=== PATIENT | female | born 1980 | race Two or more races ===

== ENCOUNTER 2017-05-10 18:57 | Emergency (ER) | payer MEDICAID ==
[~2017-05-10] VITALS: Ht 165.1 cm; Wt 90.3 kg
[~2017-05-10 18:57] MED LIST: ATIVAN0.5 MG ORAL; BENADRYL A12.5 MG/5 ORAL; CYCLOBENZAPRINE10 MG ORAL; IBUPROFEN400 MG ORAL; IBUPROFEN600 MG ORAL; KENALOG 0.5% CR15 GM APPLIC; NKM; NORCO 5-325 TA1 EACH ORAL; PEPCID40 MG PO; PEPTO-BISM262 MG/15 PO; TRAZODONE HCL50 MG ORAL
[2017-05-10] MEDS ORDERED: IBUPROFEN600 MG ORAL (19:28)
[2017-05-10] MEDS ORDERED: PROMETHAZINE-D118 ML ORAL (19:28)
[2017-05-10] MEDS ORDERED: PROAIR HFA8.5 GM INH (19:28)
[2017-05-10 19:29] VITALS: BP 130/77
--- NOTE | 2017-05-10 20:48 | Emergency Room Report ---
History of Present Illness General Chief Complaint: Upper Respiratory Illness Source: Patient Present Illness HPI The patient is a 37-year-old female presenting for body pain, cough, and fever since yesterday. She denies any known sick contacts or recent travel. She did not have a flu shot this year. Pain described as an 8/10 dull ache. She has used Motrin which helps. She denies other symptoms including N, V, SOB, hemoptysis, DOBBINS, fatigue Allergies: Coded Allergies: No Known Allergies (Unverified , 07/01/15) Patient History Past Medical History: see triage record Pertinent Family History: none Last Menstrual Period: 04/26/17 Now: No : 2 Para: 2 Reviewed Nursing Documentation: PMH: Agreed, PSxH: Agreed Nursing Documentation-PMH Past Medical History: No History, Except For History Of Psychiatric Problem: Yes - anxiety Review of Systems All Other Systems: negative except mentioned in HPI Physical Exam Vital Signs Date Time Temp Pulse Resp B/P (MAP) Pulse Ox O2 Delivery O2 Flow Rate FiO2 05/10/17 19:08 99.7 94 14 132/77 99 Room Air Sp02 EP Interpretation: reviewed, normal General Appearance: no apparent distress, alert, GCS 15, non-toxic Head: normocephalic, atraumatic Eyes: bilateral eye normal inspection, bilateral eye PERRL ENT: hearing grossly normal, normal pharynx, no angioedema, normal voice Neck: full range of motion, supple/symm/no masses Respiratory: chest non-tender, normal breath sounds, decreased breath sounds - bilat, speaking full sentences Cardiovascular #1: regular rate, rhythm, no edema Musculoskeletal: back normal, gait/station normal, normal range of motion, non- tender Neurologic: alert, oriented x3, responsive, motor strength/tone normal, sensory intact, speech normal Psychiatric: judgement/insight normal, memory normal, mood/affect normal, no suicidal/homicidal ideation Skin: normal color, no rash, warm/dry, well hydrated Lymphatic: no adenopathy Medical Decision Making PA Attestation Dr. Aguilar is my supervising physician. Patient management was discussed with my supervising physician Diagnostic Impression: Primary Impression: Bronchitis ER Course The patient is a 37-year-old female presenting for body pain, cough, and fever since yesterday. Differential diagnosis include but not limited to pharyngitis, sinusitis, AOM, bronchitis, PNA PE: afebrile but temp elevated. No tachypnea. No apparent distress. No TTP over maxillary or frontal sinuses. Lungs:decreased breath sounds. No accessory muscle use. No resp distress Heart: RRR, no abnormal heart sounds Ears: external auditory canal clear. Non erythematous. Bilat TM intact. Cone of light present bilat. No bulging of TM. No serous fluid seen. no nasal D/C Nor cervical lymphad No tonsillar exudate. Uvula midline.Oropharynx non erythematous The patient will be discharged home with a prescription for albuterol, cough medication, and motrin. ER precautions given Last Vital Signs Date Time Temp Pulse Resp B/P (MAP) Pulse Ox O2 Delivery O2 Flow Rate FiO2 05/10/17 19:39 99.5 92 18 130/77 99 Room Air Status: improved Disposition: HOME, SELF-CARE Condition: Improved Scripts Albuterol Sulfate* (PROAIR HFA*) 8.5 Gm Hfa.aer.ad 2 PUFFS INH Q6H, #8.5 GM 0 Refills Prov: KAE LERNER.ARyan 05/10/17 D-Methorphan Hb/Prometh Hcl* (PROMETHAZINE-DM SYRUP*) 118 Ml Syrup 5 ML ORAL Q6H Y for For Cough, #118 ML 0 Refills Prov: KAE LERNER.A. 05/10/17 Ibuprofen* (MOTRIN*) 600 Mg Tablet 600 MG ORAL Q8H Y for For Pain, #30 TAB 0 Refills Prov: KAE LERNER.A. 05/10/17 Referrals: [facility],REFERRING (PCP) Patient Instructions: Cough, Adult Additional Instructions: I discussed my findings with the patient. All questions and concerns have been answered. Treatment and medication compliance have been addressed. I advised the patient that they need to follow up with PMD in 3-5 days. Return to ED if pain remains or worsens, cough worsens or remains, you notice blood in your sputum, you notice wheezing, you experience a fever, or if needed for any reason. Patient verbalized understanding of discharge instructions. KAE LERNER May 10, 2017 20:48
== END 2017-05-10 19:41 | disposition home or self-care (01) ==
LOC: EMR 19:26
DX: J40 Bronchitis, not specified as acute or chronic (principal)
CPT/HCPCS: 99283

== ENCOUNTER 2017-09-14 05:49 | Emergency (ER) | payer MEDICAID, OTHER ==
[~2017-09-14] VITALS: Ht 165.1 cm; Wt 90.7 kg
[~2017-09-14 05:49] MED LIST changes: +PROAIR HFA8.5 GM INH; +PROMETHAZINE-D118 ML ORAL
[2017-09-14 06:07] VITALS: BP 135/82
--- NOTE | 2017-09-14 06:47 | Emergency Room Report ---
History of Present Illness General Chief Complaint: Skin Rash/Abscess Source: Patient Present Illness HPI Patient states that she days ago she has been developing a rash on her L. neck and left shoulder. She states that the area was small and has progressed to a larger area. She states it is painful and ty. She denies recent illness. She denies neck pain or stiffness. She denies headache. She denies fever chills. She denies blurry vision. She has no other complaints. Allergies: Coded Allergies: No Known Allergies (Unverified , 07/01/15) Patient History Past Medical History: see triage record Past Surgical History: castro casillas Last Menstrual Period: 09/05/17 Now: No : 2 Para: 2 Reviewed Nursing Documentation: PMH: Agreed; PSxH: Agreed Nursing Documentation-PM Past Medical History: No Stated History Review of Systems All Other Systems: negative except mentioned in HPI Physical Exam Vital Signs Date Time Temp Pulse Resp B/P (MAP) Pulse Ox O2 Delivery O2 Flow Rate FiO2 09/14/17 05:58 98.1 77 16 135/82 97 Room Air 98.1 Sp02 EP Interpretation: reviewed, normal General Appearance: no apparent distress, alert, GCS 15, non-toxic Head: normocephalic, atraumatic Eyes: bilateral eye normal inspection, bilateral eye PERRL ENT: hearing grossly normal, normal pharynx, no angioedema, normal voice Neck: full range of motion, supple/symm/no masses Respiratory: no respiratory distress, no retraction, no accessory muscle use, speaking full sentences Gastrointestinal: normal bowel sounds, non tender, soft, non-distended, no guarding, no rebound Rectal: deferred Musculoskeletal: back normal, gait/station normal, normal range of motion, non- tender Neurologic: alert, oriented x3, responsive, motor strength/tone normal, sensory intact, speech normal Psychiatric: judgement/insight normal, memory normal, mood/affect normal, no suicidal/homicidal ideation Skin: well hydrated, other - L. Lateral neck, L. shoulder and L. upper chest with rash with erythematous base with overlying vesicles. Does not cross the midline. Medical Decision Making Diagnostic Impression: Primary Impression: Varicella-zoster infection ER Course This patient has skin findings consistent with shingles. The rash is visually consistent with this as it is erythematous and vesicular in a dermatomal pattern. Patient is otherwise nontoxic. There is no evidence of disseminated or complicated varicella zoster. The patient has no history of immunocompromise or recurrent illnesses. I did give the patient IM Toradol. I will place the patient on oral antivirals, topical lidocaine and pain medications. Patient given close to return precautions and follow-up instructions. Last Vital Signs Date Time Temp Pulse Resp B/P (MAP) Pulse Ox O2 Delivery O2 Flow Rate FiO2 09/14/17 06:07 98.1 77 16 135/82 97 Room Air 98.1 Disposition: HOME, SELF-CARE Condition: Stable Referrals: NON PHYSICIAN (PCP) Jill Tobias DO Sep 14, 2017 06:47
[2017-09-14] MEDS ORDERED: IBUPROFEN800 MG ORAL (07:00)
[2017-09-14] MEDS ORDERED: Ketorolac 60mg Inj IM ONE (07:00)
[2017-09-14] MEDS ORDERED: ACETAMINOPHEN-1 EAC1 ORAL (07:00)
[2017-09-14] MEDS ORDERED: LD2JL30 TOPIC (07:00)
[2017-09-14] MEDS ORDERED: VALACYCLOVIR500 MG ORAL (07:00)
[2017-09-14 07:06] VITALS: BP 135/82
== END 2017-09-14 07:10 | disposition home or self-care (01) ==
LOC: EMR 06:09
DX: B01.9 Varicella without complication (principal); B02.8 Zoster with other complications
CPT/HCPCS: 96372; 99283

== ENCOUNTER 2018-09-26 22:32 | Emergency (ER) | payer MEDICAID ==
[~2018-09-26] VITALS: Ht 160 cm; Wt 90.7 kg
[~2018-09-26 22:32] MED LIST changes: +ACETAMINOPHEN-1 EAC1 ORAL; +IBUPROFEN800 MG ORAL; +LD2JL30 TOPIC; +VALACYCLOVIR500 MG ORAL
--- NOTE | 2018-09-26 22:57 | NUR ---
ED Nurse Note: pt ambulated to ed c/o lower leg pain radiating to back x 4 days. pt denies injury to site. skin intact. no deformitie noted
[2018-09-26 22:58] VITALS: BP 117/72
[2018-09-26] MEDS ORDERED: PREDNISONE20 MG ORAL (23:17)
[2018-09-26] MEDS ORDERED: IBUPROFEN600 MG ORAL (23:17)
--- NOTE | 2018-09-26 23:17 | Emergency Room Report ---
History of Present Illness General Chief Complaint: Pain Source: Patient Present Illness HPI Is a 38-year-old female with no past medical history. She presents with chief complaint of right leg pain. Is not intermittently since . Pain start in the buttock area and travels down her leg and calf area. Worse with certain motion. Worse with certain activity. No incontinence of bowel or urine. No trauma. In 2016 she has an MRI of her back and he said that she has stenosis. Allergies: Coded Allergies: No Known Allergies (Unverified , 09/26/18) Patient History Past Medical History: see triage record, old chart reviewed Past Surgical History: none Pertinent Family History: none Social History: Denies: smoking Last Menstrual Period: 09-16-2018 Now: No Immunizations: other Reviewed Nursing Documentation: PMH: Agreed; PSxH: Agreed Nursing Documentation-PMH Hx Cardiac Problems: No - appendix and gallbladder removed Review of Systems Eye: Denies: eye pain, blurred vision ENT: Denies: ear pain, nose congestion, throat swelling Respiratory: Denies: cough, shortness of breath Cardiovascular: Denies: chest pain, palpitations Gastrointestinal: Denies: abdominal pain, diarrhea, nausea, vomiting Musculoskeletal: Reports: back pain; Denies: joint pain Skin: Denies: rash Neurological: Denies: headache, numbness Endocrine: Denies: increased thirst, increased urine Hematologic/Lymphatic: Denies: easy bruising All Other Systems: negative except mentioned in HPI Physical Exam Vital Signs Date Time Temp Pulse Resp B/P (MAP) Pulse Ox O2 Delivery O2 Flow Rate FiO2 09/26/18 22:44 98.1 68 14 117/72 (87) 97 Vitals normal Sp02 EP Interpretation: reviewed, normal General Appearance: well appearing, no apparent distress, alert Head: normocephalic, atraumatic Eyes: bilateral eye PERRL, bilateral eye EOMI ENT: hearing grossly normal, normal pharynx Neck: full range of motion, supple, no meningismus Respiratory: chest non-tender, lungs clear, normal breath sounds Cardiovascular #1: regular rate, rhythm, no murmur Gastrointestinal: normal bowel sounds, non tender, no mass, no organomegaly, no bruit, non-distended Musculoskeletal: back normal, gait/station normal, normal range of motion Psychiatric: mood/affect normal Medical Decision Making Diagnostic Impression: Primary Impression: Sciatica of left side ER Course Patient with radicular pain from sciatica. No evidence of cauda equina syndrome , spinal epidural abscess or neoplastic process Last Vital Signs Date Time Temp Pulse Resp B/P (MAP) Pulse Ox O2 Delivery O2 Flow Rate FiO2 09/26/18 22:58 98.1 68 14 117/72 97 Status: unchanged Disposition: HOME, SELF-CARE Condition: Stable Scripts Ibuprofen* (MOTRIN*) 600 Mg Tablet 600 MG ORAL THREE TIMES A DAY, #30 TAB 0 Refills Prov: Koko Farr MD 09/26/18 Prednisone* (PREDNISONE*) 20 Mg Tablet 40 MG ORAL DAILY, #10 TAB Prov: Koko Farr MD 09/26/18 Additional Instructions: Follow-up with your doctor in 7 days. Return if worse. Koko Farr MD Sep 26, 2018 23:17
[2018-09-26 23:21] VITALS: BP 124/76
--- NOTE | 2018-09-26 23:21 | NUR ---
ER DISCHARGE NOTE: Patient is cleared to be discharged per ERMD, pt is aox4, on room air, with stable vital signs. pt was given dc and prescription instructions, pt was able to verbalize understanding, pt id band removed. pt is able to ambulate with steady gait. pt took all belongings.
== END 2018-09-26 23:21 | disposition home or self-care (01) ==
LOC: EMR 23:10
DX: M54.32 Sciatica, left side (principal)
CPT/HCPCS: 99282

== ENCOUNTER 2019-02-20 18:13 | Emergency (ER) | payer MEDICAID ==
[~2019-02-20] VITALS: Ht 162.6 cm; Wt 90.7 kg
[~2019-02-20 18:13] MED LIST changes: +PREDNISONE20 MG ORAL
[2019-02-20] MEDS ORDERED: Lidocaine 2% Visc 15ml soln ORAL ONE (18:30)
[2019-02-20] MEDS ORDERED: Mylanta II UD 30ml ORAL ONE (18:30)
--- NOTE | 2019-02-20 18:42 | Emergency Room Report ---
History of Present Illness General Chief Complaint: Abdominal Pain Source: Patient Present Illness HPI The patient presents with 2 to 3 days of epigastric burning radiating towards her back. She has had her gallbladder taken out. There has been no vomiting or diarrhea. She feels somewhat nauseated. She is been taking ranitidine twice a day. Pain is rated 8/10 at this time. It is burning, like a fire and fairly constant right now. She is concerned about her liver function test. She denies alcohol intake. There is no melena or hematochezia. She does not believe she is at this time. Denies dysuria. No fevers or chills. No upper respiratory symptoms. Allergies: Coded Allergies: No Known Allergies (Unverified , 09/26/18) Patient History Past Medical History: see triage record Past Surgical History: castro Social History: Denies: smoking, alcohol use, drug use Social History Narrative Last Menstrual Period: 02/03/19 Now: No Reviewed Nursing Documentation: PMH: Agreed; PSxH: Agreed Nursing Documentation-PMH Past Medical History: No History, Except For Hx Cardiac Problems: No - appendix and gallbladder removed Review of Systems All Other Systems: negative except mentioned in HPI Physical Exam Vital Signs Date Time Temp Pulse Resp B/P (MAP) Pulse Ox O2 Delivery O2 Flow Rate FiO2 02/20/19 18:20 98.2 76 18 115/74 (88) 99 Room Air Sp02 EP Interpretation: reviewed, normal General Appearance: well appearing, no apparent distress, GCS 15, non-toxic Head: normocephalic, atraumatic Eyes: bilateral eye normal inspection, bilateral eye PERRL, bilateral eye EOMI ENT: moist mucus membranes Neck: supple Respiratory: lungs clear, normal breath sounds Cardiovascular #1: regular rate, rhythm Cardiovascular #2: 2+ radial (R) Gastrointestinal: normal inspection, normal bowel sounds, no mass, non- distended, no guarding, no rebound, tenderness - Epigastric Genitourinary: no CVA tenderness Musculoskeletal: back normal, normal range of motion, gait/station normal Neurologic: alert, oriented x3, grossly normal Psychiatric: mood/affect normal - Slightly anxious Skin: no rash, warm/dry Medical Decision Making Diagnostic Impression: Primary Impression: Gastritis Qualified Codes: K29.00 - Acute gastritis without bleeding ER Course Patient presents with epigastric pain. Differential includes gastritis, peptic ulcer disease, pancreatitis amongst others. Evaluation will be with labs patient the patient will be treated with Pepcid Mylanta and viscous lidocaine. Based on her risk factors, history and exam EKG and imaging not indicated. Labs unremarkable. Improved. Discussed treatment plan with patient. Discussed results with patient. She is stable for outpatient observation and treatment. Laboratory Tests Test 02/20/19 18:35 White Blood Count 9.4 K/UL (4.8-10.8) Red Blood Count 4.66 M/UL (4.20-5.40) Hemoglobin 13.1 G/DL (12.0-16.0) Hematocrit 39.9 % (37.0-47.0) Mean Corpuscular Volume 86 FL (80-99) Mean Corpuscular Hemoglobin 28.2 PG (27.0-31.0) Mean Corpuscular Hemoglobin Concent 32.9 G/DL (32.0-36.0) Red Cell Distribution Width 13.3 % (11.6-14.8) Platelet Count 458 K/UL (150-450) H Mean Platelet Volume 4.8 FL (6.5-10.1) L Neutrophils (%) (Auto) 53.0 % (45.0-75.0) Lymphocytes (%) (Auto) 34.1 % (20.0-45.0) Monocytes (%) (Auto) 10.4 % (1.0-10.0) H Eosinophils (%) (Auto) 1.6 % (0.0-3.0) Basophils (%) (Auto) 0.9 % (0.0-2.0) Urine Color Pale yellow Urine Appearance Clear Urine pH 6 (4.5-8.0) Urine Specific [place] 1.010 (1.005-1.035) Urine Protein Negative (NEGATIVE) Urine Glucose (UA) Negative (NEGATIVE) Urine Ketones Negative (NEGATIVE) Urine Blood 1+ (NEGATIVE) H Urine Nitrite Negative (NEGATIVE) Urine Bilirubin Negative (NEGATIVE) Urine Urobilinogen Normal MG/DL (0.0-1.0) Urine Leukocyte Esterase Negative (NEGATIVE) Urine RBC 0-2 /HPF (0 - 2) Urine WBC 0 /HPF (0 - 2) Urine Squamous Epithelial Cells Occasional /LPF Urine Bacteria None /HPF (NONE) Urine HCG, Qualitative Negative (NEGATIVE) Sodium Level 136 MMOL/L (136-145) Potassium Level 4.5 MMOL/L (3.5-5.1) Chloride Level 105 MMOL/L (98-107) Carbon Dioxide Level 26 MMOL/L (21-32) Anion Gap 5 mmol/L (5-15) Blood Urea Nitrogen 8 mg/dL (7-18) Creatinine 0.7 MG/DL (0.55-1.30) Estimate Glomerular Filtration Rate > 60 mL/min (>60) Glucose Level 83 MG/DL (74-106) Calcium Level 8.2 MG/DL (8.5-10.1) L Total Bilirubin 0.3 MG/DL (0.2-1.0) Aspartate Amino Transferase (AST) 36 U/L (15-37) Alanine Aminotransferase (ALT) 36 U/L (12-78) Alkaline Phosphatase 64 U/L (46-116) Total Protein 7.5 G/DL (6.4-8.2) Albumin 3.6 G/DL (3.4-5.0) Globulin 3.9 g/dL Albumin/Globulin Ratio 0.9 (1.0-2.7) L Lipase 235 U/L (73-393) Last Vital Signs Date Time Temp Pulse Resp B/P (MAP) Pulse Ox O2 Delivery O2 Flow Rate FiO2 02/20/19 20:00 98.0 80 17 111/64 99 Room Air Status: improved Disposition: HOME, SELF-CARE Condition: Improved Scripts Acetaminophen (Tylenol) 325 Mg Tablet 650 MG ORAL Q6H PRN for Prn Pain/Headache/Temp > 101, #20 TAB 0 Refills Prov: Shelton Sim MD 02/20/19 Mag Hydrox/Aluminum Hyd/Simeth (Mylanta Maximum Strength Liq) 355 Ml Oral.susp 30 ML PO Q6HR, #240 ML Prov: Shelton Sim MD 02/20/19 Famotidine* (Pepcid 20mg tablet*) 20 Mg Tablet 20 MG ORAL DAILY, #30 TAB 0 Refills Prov: Shelton Sim MD 02/20/19 Shelton Sim MD Feb 20, 2019 18:42
[2019-02-20 18:48] VITALS: BP 110/59
[2019-02-20 18:58] LABS: BASOPHILS % (AUTO) 0.9 % (0.0-2.0); EOSINOPHILS % (AUTO) 1.6 % (0.0-3.0); HEMATOCRIT 39.9 % (37.0-47.0); HEMOGLOBIN 13.1 G/DL (12.0-16.0); LYMPHOCYTES % (AUTO) 34.1 % (20.0-45.0); MEAN CORPUSCULAR VOLUME 86 FL (80-99); MONOCYTES % (AUTO) 10.4 % (1.0-10.0); PLATELET COUNT 458 K/UL (150-450); RED BLOOD COUNT 4.66 M/UL (4.20-5.40); RED CELL DISTRIBUTION WIDTH 13.3 % (11.6-14.8); WHITE BLOOD COUNT 9.4 K/UL (4.8-10.8)
[2019-02-20 19:11] LABS: APPEARANCE,URINE CLEAR; BILIRUBIN, URINE NEGATIVE (NEGATIVE); COLOR,URINE PALE YELLOW; GLUCOSE, URINE (UA) NEGATIVE (NEGATIVE); KETONES,URINE NEGATIVE (NEGATIVE); LEUKOCYTE ESTERASE ,URINE NEGATIVE (NEGATIVE); NITRITE,URINE NEGATIVE (NEGATIVE); PH,URINE 6 (4.5-8.0); PROTEIN,URINE NEGATIVE (NEGATIVE); UROBILINOGEN,URINE NORMAL MG/DL (0.0-1.0)
[2019-02-20 19:18] LABS: ANION GAP 5 mmol/L (5-15); BLOOD UREA NITROGEN 8 mg/dL (7-18); CALCIUM 8.2 MG/DL (8.5-10.1); CARBON DIOXIDE 26 MMOL/L (21-32); CHLORIDE 105 MMOL/L (98-107); CREATININE 0.7 MG/DL (0.55-1.30); POTASSIUM 4.5 MMOL/L (3.5-5.1); SODIUM 136 MMOL/L (136-145)
[2019-02-20 19:23] LABS: ALANINE AMINOTRANSFERASE 36 U/L (12-78); ALBUMIN 3.6 G/DL (3.4-5.0); ALBUMIN/GLOBULIN RATIO 0.9 (1.0-2.7); ALKALINE PHOSPHATASE 64 U/L (46-116); ASPARTATE AMINO TRANSFERASE 36 U/L (15-37); BILIRUBIN,TOTAL 0.3 MG/DL (0.2-1.0)
[2019-02-20] MEDS ORDERED: FAMOTIDINE20 MG ORAL (19:46)
[2019-02-20] MEDS ORDERED: MYLANTA MAXIMU355 ML PO (19:46)
[2019-02-20] MEDS ORDERED: TYLENOL325 MG ORAL (19:46)
[2019-02-20 20:00] VITALS: BP 111/64
== END 2019-02-20 20:00 | disposition home or self-care (01) ==
LOC: EMR 18:40
DX: K29.00 Acute gastritis without bleeding (principal); Z90.49 Acquired absence of other specified parts of digestive tract; Z90.89 Acquired absence of other organs
CPT/HCPCS: 36415; 80053; 81003; 81025; 83690; 85025; 96361; 96374; S0028; Z7502; 99284

== ENCOUNTER 2020-03-25 19:14 | Emergency (ER) | payer MEDICAID ==
[~2020-03-25] VITALS: Ht 165.1 cm; Wt 90.7 kg
[~2020-03-25 19:14] MED LIST changes: +FAMOTIDINE20 MG ORAL; +MYLANTA MAXIMU355 ML PO; +TYLENOL EXTRA500 MG ORAL; +TYLENOL325 MG ORAL
--- NOTE | 2020-03-25 19:46 | NUR ---
ED Nurse Note: pt presents to ED c/o epigastric px that radiates to the R side of her upper back. pt describes the px as "burning." she states that she has gastritis and has been taking pepcid, tums and pepto-bismol without relief of symptoms. Addendum: 03/25/20 at 8 by QLE pt denies any N/V/D or urinary symptoms at this time
[2020-03-25 19:50] VITALS: BP 114/59
[2020-03-25 20:29] LABS: APPEARANCE,URINE CLEAR; BILIRUBIN, URINE NEGATIVE (NEGATIVE); COLOR,URINE PALE YELLOW; GLUCOSE, URINE (UA) NEGATIVE (NEGATIVE); KETONES,URINE NEGATIVE (NEGATIVE); LEUKOCYTE ESTERASE ,URINE NEGATIVE (NEGATIVE); NITRITE,URINE NEGATIVE (NEGATIVE); PH,URINE 7 (4.5-8.0); PROTEIN,URINE NEGATIVE (NEGATIVE); UROBILINOGEN,URINE NORMAL MG/DL (0.0-1.0)
[2020-03-25 20:29] LABS: BASOPHILS % (AUTO) 1.2 % (0.0-2.0); EOSINOPHILS % (AUTO) 1.7 % (0.0-3.0); HEMATOCRIT 40.2 % (37.0-47.0); HEMOGLOBIN 13.8 G/DL (12.0-16.0); LYMPHOCYTES % (AUTO) 36.1 % (20.0-45.0); MEAN CORPUSCULAR VOLUME 86 FL (80-99); MONOCYTES % (AUTO) 8.7 % (1.0-10.0); NEUTROPHILS % (AUTO) 52.3 % (45.0-75.0); PLATELET COUNT 358 K/UL (150-450); RED BLOOD COUNT 4.69 M/UL (4.20-5.40); RED CELL DISTRIBUTION WIDTH 14.4 % (11.6-14.8); WHITE BLOOD COUNT 7.1 K/UL (4.8-10.8)
[2020-03-25 20:47] LABS: ANION GAP 3 mmol/L (5-15); BLOOD UREA NITROGEN 12 mg/dL (7-18); CALCIUM 9.1 MG/DL (8.5-10.1); CARBON DIOXIDE 30 MMOL/L (21-32); CHLORIDE 103 MMOL/L (98-107); CREATININE 0.7 MG/DL (0.55-1.30); POTASSIUM 4.3 MMOL/L (3.5-5.1); SODIUM 136 MMOL/L (136-145)
[2020-03-25 20:51] LABS: ALANINE AMINOTRANSFERASE 56 U/L (12-78); ALBUMIN 3.8 G/DL (3.4-5.0); ALBUMIN/GLOBULIN RATIO 0.9 (1.0-2.7); ALKALINE PHOSPHATASE 64 U/L (46-116); ASPARTATE AMINO TRANSFERASE 31 U/L (15-37); BILIRUBIN,TOTAL 0.2 MG/DL (0.2-1.0)
[2020-03-25] MEDS ORDERED: Ketorolac 60mg Inj IM ONE (21:45)
[2020-03-25] MEDS ORDERED: NAPROXEN500 M1 ORAL (21:49)
[2020-03-25] MEDS ORDERED: ONDANSETRON ODT4 MG BC (21:49)
--- NOTE | 2020-03-25 21:49 | Emergency Room Report ---
History of Present Illness General Chief Complaint: Abdominal Pain Source: Patient Present Illness HPI 40-year-old female with past medical history of obesity, anxiety, fatty liver presents with chief complaint of right upper quadrant pain x4 days. Worse after eating. Denies CP, SOB, fever, chills, vomiting, diarrhea, melena, hematochezia, dysuria, hematuria, back pain or any other symptoms. The patient's symptoms were gradual onset, severity was moderate, duration since 4 days. Quality: Aching Past medical history: Obesity, fatty liver, anxiety Past surgical history: Cholecystectomy, appendectomy Smoking: Denies Alcohol use: Denies Drug use: Denies Review of systems: CONST: No fevers or chills, No night sweats PULMONARY: No productive cough, No shortness of breath CARDIAC: No chest pain, No palpitations GI: No vomiting, No diarrhea , No melena_or_BRBPR : No dysuria, No hematuria, No discharge NEURO: No new_focal_weakness_or_numbness, No confusion, No vision changes 14 point Review of Systems is otherwise negative except per HPI Physical Exam: GENERAL: Awake_alert_ nontoxic, no acute distress Spo2 98% on RA -normal. Obese EYES: Extraocular muscles are intact. Conjunctivae clear. Lids without swelling ENT: External nose and ear normal_in_appearance. Oropharynx clear. Hea d_atraumatic, Moist_oral_mucosa NECK: No JVD. No meningismus. No thyromegaly. Supple. Trachea midline RESP: Normal respiratory effort. Symmetric rise. No stridor. Clear_to_auscultation_No_rales_No_wheezes CARDIAC: Regular rate and regular rhytm. No_significant pedal edema. ABDOMEN: Soft. Nondistended. Nontender_No_rebound_or_guarding. Negative Wheatley sign. Negative Rovsing's. No palpable hepatosplenomegaly. MSK: Normal muscle tone, without rigidity. Extremities without asymmetric deformity or swelling. SKIN: Warm and dry. No visible cyanosis or pallor NEUROLOGIC: Alert, oriented x3. Motor_and_sensation_grossly_intact. No truncal ataxia. Gait_normal Psych: Normal mood and affect, normal judgment and insight - COORDINATION OF CARE Case was discussed with: Patient Any labs and imaging that were ordered were interpreted as part of the medical decision making: Medical Decision Making/Plan: Differential diagnosis includes fatty liver, pancreatitis, hepatitis, small bowel obstruction, volvulus, AAA, pancreatitis, atypical appendicitis, gastroparesis, gastritis, peptic ulcer disease, among others. Patient is well appearing with stable vital signs. Abdominal exam is non peritoneal with no guarding or rebound. Labs show no acute abnormalities. Troponin and lipase are within normal limits. Urine is negative for UTI. test is negative. CT scan shows constipation and possible cystitis. UA negative for UTI, however. Radiologist recommended pelvic US to further characterize R adnexal ovarian enlargement. The patient denies any bloody stool and has no pain out of proportion to exam, and no significant risk factors for mesenteric ischemia such as atrial fibrillation or severe PAD/PVD (peripheral arterial / vascular disease), thus definitive workup to rule out mesenteric ischemia was not pursued. The patients symptoms are not consistent with ACS (acute coronary syndrome), symptoms are not exertional, EKG without obvious ischemic change. Care signed out to Dr Farr Pending pelvic US. Allergies: Coded Allergies: No Known Allergies (Unverified , 09/26/18) COVID-19 Screening Contact w/high risk pt: No Experienced COVID-19 symptoms?: No COVID-19 Testing performed REGULATORY MANAGER: No Patient History Last Menstrual Period: 02/2020 Nursing Documentation-[facility] Hx Cardiac Problems: No - gallbladder removal, appendectomy Physical Exam Vital Signs Date Time Temp Pulse Resp B/P (MAP) Pulse Ox O2 Delivery O2 Flow Rate FiO2 03/25/20 19:29 98.4 79 16 114/59 (77) 98 Room Air Sp02 EP Interpretation: reviewed, normal Medical Decision Making Diagnostic Impression: Primary Impression: Abdominal pain Additional Impressions: Fatty liver Gastritis Constipation Ovarian cyst EKG Diagnostic Results Troponin ordered: No Rhythm Strip Diag. Results Rhythm Strip Time: 21:47 EP Interpretation: yes Rate: 98 Rhythm: NSR, no PVC's, no ectopy CT/MRI/US Diagnostic Results CT/MRI/US Diagnostic Results : Impression CT Abdomen and Pelvis Without Intravenous Contrast CLINICAL HISTORY: PAIN TECHNIQUE: Axial computed tomography images of the abdomen and pelvis without intravenous contrast. CTDI is 12.60 mGy and DLP is 724.40 mGy-cm. One or more of the following dose reduction techniques were used: automated exposure control, adjustment of the mA and/or kV according to patient size, use of iterative reconstruction technique. Coronal and sagittal reformatted images were created and reviewed. COMPARISON: 11/22/2008 Liver: Unremarkable. Gallbladder and bile ducts: Cholecystectomy. No ductal dilation. Pancreas: Unremarkable. No ductal dilation. Spleen: Unremarkable. No splenomegaly. Adrenals: Unremarkable. No mass. Kidneys and ureters: Unremarkable. No obstructing stones. No hydronephrosis. Stomach and bowel: Mildly prominent stool burden could be a cause for pain. No obstruction. No mucosal thickening. PELVIS: Appendix: No findings to suggest acute appendicitis. Bladder: Urinary bladder minimal wall thickening. No stones. Reproductive: Large left adnexal hypodense 5.3 cm mass likely represents an ovary, possibly with a hemorrhagic cyst, but is not definitively characterized on this study. ABDOMEN and PELVIS: Intraperitoneal space: Unremarkable. No free air. No significant fluid collection. Bones/joints: Unilateral right L5 spondylolysis with no spondylolisthesis. No acute fracture. No dislocation. Soft tissues: Unremarkable. Vasculature: Unremarkable. No abdominal aortic aneurysm. Lymph nodes: Unremarkable. No enlarged lymph nodes. IMPRESSION: 1. Study limited due to lack of IV contrast. 2. Urinary bladder wall thickening could be incidental, due to high outlet pressures, or could represent cystitis. 3. Recommend pelvic ultrasound to further characterize right adnexal probably ovarian enlargement. 4. Mildly prominent stool burden could be a cause for pain. 5. Unilateral right L5 spondylolysis with no spondylolisthesis. 6. Cholecystectomy. Dictated By: Roberto Fernandez MD Reevaluation Time: 22:36 Last Vital Signs Date Time Temp Pulse Resp B/P (MAP) Pulse Ox O2 Delivery O2 Flow Rate FiO2 03/25/20 19:50 79 16 Room Air 03/25/20 19:50 98.4 114/59 98 Status: improved Disposition: HOME, SELF-CARE Admit Decision Time: 22:34 Condition: Stable Signed Out To: Dr Katrina Hudson Naproxen* (NAPROXEN*) 500 Mg Tablet. 500 MG ORAL TWICE A DAY for 10 Days, #20 TAB Prov: Bridgett Parra D.O. 03/25/20 Ondansetron Odt* (ZOFRAN ODT*) 4 Mg Tab.rapdis 4 MG BC EVERY 8 HOURS, #10 TAB 0 Refills Prov: Bridgett Parra D.O. 03/25/20 Referrals: NON PHYSICIAN (PCP) Patient Instructions: Abdominal Pain, Adult Additional Instructions: Bridgett Parra D.O. Mar 25, 2020 21:49
--- NOTE | 2020-03-25 22:30 | Diagnostic Imaging Report ---
EXAM: CT Abdomen and Pelvis Without Intravenous Contrast CLINICAL HISTORY: PAIN TECHNIQUE: Axial computed tomography images of the abdomen and pelvis without intravenous contrast. CTDI is 12.60 mGy and DLP is 724.40 mGy-cm. One or more of the following dose reduction techniques were used: automated exposure control, adjustment of the mA and/or kV according to patient size, use of iterative reconstruction technique. Coronal and sagittal reformatted images were created and reviewed. COMPARISON: 11/22/2008 FINDINGS: Limitations: Study limited due to lack of IV contrast. Lung bases: Unremarkable. No mass. No consolidation. ABDOMEN: Liver: Unremarkable. Gallbladder and bile ducts: Cholecystectomy. No ductal dilation. Pancreas: Unremarkable. No ductal dilation. Spleen: Unremarkable. No splenomegaly. Adrenals: Unremarkable. No mass. Kidneys and ureters: Unremarkable. No obstructing stones. No hydronephrosis. Stomach and bowel: Mildly prominent stool burden could be a cause for pain. No obstruction. No mucosal thickening. PELVIS: Appendix: No findings to suggest acute appendicitis. Bladder: Urinary bladder minimal wall thickening. No stones. Reproductive: Large left adnexal hypodense 5.3 cm mass likely represents an ovary, possibly with a hemorrhagic cyst, but is not definitively characterized on this study. ABDOMEN and PELVIS: Intraperitoneal space: Unremarkable. No free air. No significant fluid collection. Bones/joints: Unilateral right L5 spondylolysis with no spondylolisthesis. No acute fracture. No dislocation. Soft tissues: Unremarkable. Vasculature: Unremarkable. No abdominal aortic aneurysm. Lymph nodes: Unremarkable. No enlarged lymph nodes. IMPRESSION: 1. Study limited due to lack of IV contrast. 2. Urinary bladder wall thickening could be incidental, due to high outlet pressures, or could represent cystitis. 3. Recommend pelvic ultrasound to further characterize right adnexal probably ovarian enlargement. 4. Mildly prominent stool burden could be a cause for pain. 5. Unilateral right L5 spondylolysis with no spondylolisthesis. 6. Cholecystectomy.
--- NOTE | 2020-03-26 | NUR ---
Nurse Note: US at bedside.
[2020-03-26 00:45] VITALS: BP 122/64
--- NOTE | 2020-03-26 00:45 | NUR ---
ED Nurse Note: Pt cleared by health care Provider for discharge. DC instructions/prescription was given and explained to pt and verbalized understanding of teachings. Instructed pt to follow up with PCP within one week; provided referals as well. All medical deviecs such as ID band removed; IV site removed, site clean and bandaged. Pt is AAO x4, ambulatory and left with all personal belongings.
--- NOTE | 2020-03-26 00:50 | Diagnostic Imaging Report ---
ADDENDUM - Added by Roberto Fernandez MD on 03/27/2020 7:43 PM (-08:00) Addendum: 1. Please note that this was a transabdominal and endovaginal exam. 2. Remainder of the report is unchanged. EXAM: US Pelvis Transabdominal, Complete CLINICAL HISTORY: PAIN TECHNIQUE: Real-time complete transabdominal pelvic ultrasound with image documentation. COMPARISON: Same day CT abdomen and pelvis FINDINGS: Uterus/cervix: Uterus 9.5 x 5.3 x 4.7 cm Endometrium 0.9 cm No myometrial mass. Right ovary: Right ovarian 5 cm probable endometrioma. Right ovary 6 cm Right ovarian mass with low-grade homogeneous echogenicity and measures 5 cm, appearance typical endometrioma. Normal blood flow. Left ovary: Left ovary 3 cm Normal blood flow. Free fluid: No free fluid. Bladder: Unremarkable as visualized. Wall is normal thickness for degree of distention. IMPRESSION: 1. No acute abnormality definitively identified to account for patient presentation. 2. Right ovarian 5 cm probable endometrioma. 3. Otherwise unremarkable study.
== END 2020-03-26 00:45 | disposition home or self-care (01) ==
LOC: EMR 20:14
DX: R10.9 Unspecified abdominal pain (principal); K76.0 Fatty (change of) liver, not elsewhere classified; K29.70 Gastritis, unspecified, without bleeding; K59.00 Constipation, unspecified; N83.201 Unspecified ovarian cyst, right side; M43.06 Spondylolysis, lumbar region; Z90.49 Acquired absence of other specified parts of digestive tract
CPT/HCPCS: 36415; 74176; 76830; 76856; 80053; 81003; 81025; 83690; 85025; 96372; Z7502; 99284